=== PATIENT | female | born 2000 | race Caucasian/White ===

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

== ENCOUNTER 2021-02-28 13:31 | Emergency (ER) | payer OTHER ==
[~2021-02-28] VITALS: Ht 170.2 cm; Wt 64.0 kg
[2021-02-28] MEDS ORDERED: FLEXERIL PO (15:26)
[2021-02-28 15:34] VITALS: BP 104/70
== END 2021-02-28 15:34 | disposition home or self-care (01) ==
LOC: M.ERS 13:31
DX: S42.254A Nondisplaced fracture of greater tuberosity of right humerus, initial encounter for closed fracture (principal); V49.88XA Car occupant (driver) (passenger) injured in other specified transport accidents, initial encounter; Y93.89 Activity, other specified; Y92.413 State road as the place of occurrence of the external cause; Y99.9 Unspecified external cause status

== ENCOUNTER → 2021-03-08 | Outpatient (CLI) | payer OTHER ==
[~2021-03-08] MED LIST: FLEXERIL PO
== END ==
LOC: M.MRI 07:30
PROVIDERS: ATTEND Orthopaedic Surgery
DX: S42.91XA Fracture of right shoulder girdle, part unspecified, initial encounter for closed fracture (principal); M24.811 Other specific joint derangements of right shoulder, not elsewhere classified; M24.9 Joint derangement, unspecified; M75.101 Unspecified rotator cuff tear or rupture of right shoulder, not specified as traumatic; X58.XXXA Exposure to other specified factors, initial encounter; Y93.89 Activity, other specified; Y92.89 Other specified places as the place of occurrence of the external cause; Y99.8 Other external cause status

== ENCOUNTER → 2021-04-09 | Outpatient (CLI) | payer OTHER | LOC: M.RAD 07:46 | PROVIDERS: ATTEND Orthopaedic Surgery | DX: S42.294A Other nondisplaced fracture of upper end of right humerus, initial encounter for closed fracture (principal); X58.XXXA Exposure to other specified factors, initial encounter; Y93.89 Activity, other specified; Y92.89 Other specified places as the place of occurrence of the external cause; Y99.8 Other external cause status ==